=== PATIENT | female | born 1965 | race Hispanic/Latino ===

== ENCOUNTER 2018-09-19 09:21 | Emergency (ER) | payer OTHER ==
[~2018-09-19 09:21] MED LIST: ATOR10 PO; INSU10VI3 SQ; LISI10TA7 PO; Metoclopramide Hcl PO
[2018-09-19 09:47] LABS: BASOPHILS % (AUTO) 0.6 % (0.0-5.0); EOSINOPHILS % (AUTO) 2.5 % (0.0-8.0); HEMATOCRIT 32.8 % (36-48); LYMPHOCYTES % (AUTO) 22.7 % (21.0-51.0); MEAN CORPUSCULAR HEMOGLOBIN 29.1 pg (27.0-33.0); MEAN CORPUSCULAR HGB CONC 34.5 g/dL (32.0-36.0); MEAN CORPUSCULAR VOLUME 84.5 fL (79-99); MONOCYTES % (AUTO) 5.4 % (3.0-13.0); NEUTROPHILS % (AUTO) 68.8 % (40.0-77.0); PLATELET COUNT (AUTO) 423 K/uL (130-400); RED BLOOD CELL COUNT(AUTO) 3.88 MIL/uL (4.00-5.50); RED CELL DISTRIBUTION WIDTH 13.9 % (11.0-15.5); WHITE BLOOD COUNT (AUTO) 10.8 K/uL (4.8-10.8)
[2018-09-19 09:58] LABS: POTASSIUM 4.2 mmol/L (3.5-5.1)
[2018-09-19 10:02] LABS: ALBUMIN 3.1 g/dL (3.5-5.0); BILIRUBIN,TOTAL 0.3 mg/dL (0.2-1.0); TOTAL PROTEIN, SERUM 7.7 g/dL (6.0-8.3)
[2018-09-19] MEDS ORDERED: IOHEXOL-350 50ML VIAL IV ONE (11:08)
[2018-09-19] MEDS ORDERED: ACETAMINOPHEN EXTRA STRENGTH 500 MG TABLET ONE (11:59)
[2018-09-19 12:09] LABS: BILIRUBIN,URINE NEGATIVE (NEGATIVE); COLOR,URINE YELLOW (YELLOW); GLUCOSE, URINE (UA) 100 mg/dL (NEGATIVE); KETONES,URINE NEGATIVE (NEGATIVE); LEUKOCYTE ESTERASE ,URINE NEGATIVE (NEGATIVE); NITRATE,URINE NEGATIVE (NEGATIVE); OCCULT BLOOD,URINE SMALL (NEGATIVE); PROTEIN,URINE >=300 mg/dL (NEGATIVE); UROBILINOGEN,URINE 0.2 mg/dL (0.2-1.0)
[2018-09-19 12:19] LABS: APPEARANCE,URINE CLOUDY (CLEAR)
[2018-09-19 12:28] LABS: BACTERIA,URINE Many /HPF (None Seen)
[2018-09-19 12:29] LABS: RBC,URINE 0-1 /HPF (0-1)
[2018-09-19] MEDS ORDERED: LIDOCAINE 5% TOPICAL PATCH TP ONE (14:50)
== END 2018-09-19 15:25 | disposition home or self-care (01) ==
LOC: EDH 09:21
DX: G89.4 Chronic pain syndrome (principal); E11.9 Type 2 diabetes mellitus without complications; R91.8 Other nonspecific abnormal finding of lung field; R78.5 Finding of other psychotropic drug in blood; Z98.890 Other specified postprocedural states
CPT/HCPCS: 36415; 71046; 71270; 80053; 81001; 82150; 82550; 83690; 84484; 85025; 86140; 93005; 99285; Q9967